=== PATIENT | female | born 1975 | race Hispanic/Latino ===

== ENCOUNTER 2023-05-11 10:05 | Outpatient (CLI) | payer BC | END 2023-05-11 10:06 | disposition home or self-care (01) | LOC: CSHCT 10:05 | PROVIDERS: ATTEND Student in an Organized Health Care Education/Training Program | DX: R22.1 Localized swelling, mass and lump, neck (principal); R13.11 Dysphagia, oral phase; R13.12 Dysphagia, oropharyngeal phase; K21.9 Gastro-esophageal reflux disease without esophagitis | CPT/HCPCS: 70491; 74220 ==